=== PATIENT | male | born 1995 | race Caucasian/White ===

== ENCOUNTER 2022-04-05 19:47 | Emergency (ER) | payer OTHER ==
[~2022-04-05] VITALS: Ht 185.4 cm; Wt 88.5 kg
[2022-04-05] MEDS ORDERED: AMOCLA875 PO (22:37)
[2022-04-05] MEDS ORDERED: CRUTCH2 XX (22:41)
== END 2022-04-05 23:00 | disposition home or self-care (01) ==
LOC: ER 19:47
DX: S92.315B Nondisplaced fracture of first metatarsal bone, left foot, initial encounter for open fracture (principal); W27.0XXA Contact with workbench tool, initial encounter
CPT/HCPCS: 73630; J0696